=== PATIENT | female | born 1980 | race Caucasian/White ===

== ENCOUNTER 2016-09-22 16:10 | Emergency (ER) | payer OTHER, MEDICAID ==
[2016-09-22] MEDS ORDERED: SODIUM CHLORIDE 0.9% 50 ML IV ONE (17:29)
[2016-09-22] MEDS ORDERED: DIPHENHYDRAMINE 50 MG/ML VIAL ONE (17:29)
[2016-09-22] MEDS ORDERED: PROMETHAZINE 25 MG/ML VIAL ONE ×2 (17:29→19:55)
[2016-09-22] MEDS ORDERED: SODIUM CHLORIDE 0.9% 1,000 ML ONE (17:29)
[2016-09-22] MEDS ORDERED: MAGNESIUM SULFATE 1 GM/100 ML IV ONE (19:40)
[2016-09-22] MEDS ORDERED: DEXTROSE 5% IV ONE (19:40)
[2016-09-22] MEDS ORDERED: DIHYDROERGOTAMINE IV ONE (19:40)
[2016-09-22] MEDS ORDERED: SODIUM CHLORIDE 0.9% 100 ML IV ONE (19:56)
[2016-09-22] MEDS ORDERED: DILAUDID 1 MG/ML AMP ONE (20:33)
[2016-09-22] MEDS ORDERED: ONDANSETRON 4 MG VIAL ONE (21:04)
== END 2016-09-22 21:42 | disposition home or self-care (01) ==
LOC: ER 16:10
CPT/HCPCS: 96361; 96365; 96367; 96368; 96375